=== PATIENT | female | born 1950 | race Caucasian/White ===

== ENCOUNTER 2016-07-08 18:00 | Inpatient (IN) | payer MEDICARE, OTHER ==
[~2016-07-08] VITALS: Ht 162.6 cm; Wt 68.3 kg
[~2016-07-08 18:00] MED LIST: ALBU0.63 NEB; ASPI-110 PO; CARV25TA PO; CITA10TA4 PO; CLON0.2D T-DERMAL; CYCL1TAB29 PO; DEXTROSE 50% IN WATER 50 ML VIAL(D50) IV PUSH PRN; GAMU20IN; GLUCAGON 1 MG/ML VIAL OTHER PRN; LEVE500 PO; LISI40TA PO; NEUR600T PO; RESP: ALBUTEROL 0.63 MG/3 ML NEB (PRN) NEB; SODIUM CHLORIDE 0.9% FLUSH 5 ML FLUSH IV FLUSH PRN; TYLETAB34 PO
[2016-07-08 18:22] VITALS: BP 136/76; PULSE 67; RESP 18; TEMP 96.5; O2SAT 93
--- NOTE | 2016-07-08 19:27 | HHI.HP ---
[facility]Staff Ad[facility] Diagnosis Diagnoses: Chief Complaint: Slurred speech, confusion Travel History International Travel<30 Days: No Contact w/Intl Traveler <30 Da: No Traveled to Known Affected Are: No History of Present Illness Ms. Matute is a pleasant 65 year old female with a history of seizure disorder , COPD, HTN who presented to the ED in [place], [place] due to confusion, slow with words that started around 9:30AM on 07/08/2016. She has underlying cervical disc issues that cause her to have left side weakness. However, today, she noticed her right side was weakness. Her right side both upper and lower ext feels weaker and developing a jerking movements. She was on Aspirin. However, she was advised to stop taking aspirin for skin bruises. She has not taken sinhala over 2 weeks. She denies any chest pain, shortness of breath, fever, chills. Denies any bladder or bowel habits changes. Review of Systems Except as stated in HPI: all other systems reviewed are Neg Past Family Social History Past Medical History Seizure activity COPD Hypertension Chronic neck pain Past Surgical History 4 neck surgeries last one being in December 2015 To Partial hysterectomy For surgery Reported Medications Gamunex-C Inj (Immune Globulin (Human) Inj) 20 Gm/200 Ml Inj 25 Gm Neurontin (Gabapentin) 600 Mg Tab 600 Mg PO DAILY Keppra (Levetiracetam) 500 Mg Tab 500 Mg PO BID Aspirin 81 (Aspirin) 81 Mg Tabdr 81 Mg PO DAILY Citalopram (Citalopram Hydrobromide) 10 Mg Tab 10 Mg PO DAILY Albuterol Neb (Albuterol Sulfate) 0.63 Mg/3 Ml Neb 0.63 Mg NEB TID NEB PRN Flexeril (Cyclobenzaprine HCl) 10 Mg Tab 10 Mg PO TID Tylenol-Codeine #3 (Acetaminophen-Codeine) 300-30 mg Tab 1 Tab PO Q6HR PRN Clonidine 168 HR Patch (Clonidine HCl) 0.2 Mg/24 Hr Patch 1 Patch T-DERMAL Q7D Lisinopril 40 Mg Tab 40 Mg PO DAILY Carvedilol 25 Mg Tab 25 Mg PO BID Allergies: Coded Allergies: Adhesives (Verified Allergy, Unknown, Rash, 07/08/16) Penicillin (Verified Allergy, Unknown, Hives, 07/08/16) Family History Mombreast cancer [facility] cancer Social History Denies using alcohol, tobacco, illicit drugs. Quit smoking 2 years ago. Physical Exam Vital Signs Vital Signs Date Time Temp Pulse Resp B/P Pulse Ox O2 Delivery O2 Flow Rate FiO2 07/08/16 18:22 96.5 67 18 136/76 93 Physical Exam GENERAL: This is a well-nourished, well-developed patient, in no apparent distress. SKIN: No rashes, ecchymoses or lesions. Warm and dry. HEAD: Atraumatic. Normocephalic. No temporal or scalp tenderness. EYES: Pupils equal round and reactive. No injection or drainage. ENT: Nose without bleeding, purulent drainage or septal hematoma. Airway patent. NECK: Trachea midline. No lymphadenopathy. Supple, nontender, no meningeal signs. CARDIOVASCULAR: Regular rate and rhythm without murmurs, gallops, or rubs. No JVD. RESPIRATORY: Clear to auscultation. Breath sounds equal bilaterally. No wheezes , rales, or rhonchi. GASTROINTESTINAL: Abdomen soft, non-tender, nondistended. No guarding. MUSCULOSKELETAL: Extremities without clubbing, cyanosis, or edema. NEUROLOGICAL: Awake and alert. CN II-XII grossly intact. Lower and upper ext weakness noted - 3/5. Speech is somewhat slow. No facial asymmetry. Laboratory Labs Laboratory Tests Test 07/08/16 07/08/16 12:34 12:58 White Blood Count 9.8 TH/MM3 Red Blood Count 3.29 MIL/MM3 Hemoglobin 10.2 GM/DL Hematocrit 33.0 % Mean Corpuscular Volume 100.3 FL Mean Corpuscular Hemoglobin 31.0 PG Mean Corpuscular Hemoglobin 30.9 % Concent Red Cell Distribution Width 14.6 % Platelet Count 341 TH/MM3 Mean Platelet Volume 9.4 FL Neutrophils (%) (Auto) 74.5 % Lymphocytes (%) (Auto) 15.9 % Monocytes (%) (Auto) 6.6 % Eosinophils (%) (Auto) 2.4 % Basophils (%) (Auto) 0.3 % Neutrophils # (Auto) 7.3 TH/MM3 Lymphocytes # (Auto) 1.6 TH/MM3 Monocytes # (Auto) 0.7 TH/MM3 Eosinophils # (Auto) 0.2 TH/MM3 Basophils # (Auto) 0.0 TH/MM3 CBC Comment DIFF FINAL Differential Comment Prothrombin Time 10.9 SEC Prothromb Time International 1.1 RATIO Ratio Activated Partial 21.2 SEC Thromboplast Time Sodium Level 140 MEQ/L Potassium Level 5.1 MEQ/L Chloride Level 110 MEQ/L Carbon Dioxide Level 21.0 MEQ/L Anion Gap 9 MEQ/L Blood Urea Nitrogen 63 MG/DL Creatinine 1.80 MG/DL Estimat Glomerular Filtration 28 ML/MIN Rate Random Glucose 97 MG/DL Calcium Level 9.3 MG/DL Total Bilirubin 0.2 MG/DL Aspartate Amino Transf 19 U/L (AST/SGOT) Alanine Aminotransferase 14 U/L (ALT/SGPT) Alkaline Phosphatase 120 U/L Total Creatine Kinase 82 U/L Troponin I LESS THAN 0.02 NG/ML Total Protein 8.2 GM/DL Albumin 2.8 GM/DL Urine Collection Type CATH Urine Color YELLOW Urine Turbidity CLEAR Urine pH 5.5 Urine Specific [place] 1.010 Urine Protein NEG mg/dL Urine Glucose (UA) NEG mg/dL Urine Ketones NEG mg/dL Urine Occult Blood NEG Urine Nitrite NEG Urine Bilirubin NEG Urine Leukocyte Esterase NEG Urine Squamous Epithelial 6-8 /hpf Cells Urine Amorphous Sediment SMALL Microscopic Urinalysis Comment CULT NOT INDICATED Urine Opiates Screen POS Urine Barbiturates Screen NEG Urine Amphetamines Screen NEG Urine Benzodiazepines Screen NEG Urine Cocaine Screen NEG Urine Cannabinoids Screen NEG Imaging Last [address] 07/08/16 1244 Signed Impressions: Service Date/Time: Friday, July 08, 2016 12:38 - CONCLUSION: 1. No acute intracranial hemorrhage. 2. Probable old periventricular white matter infarct adjacent to the anterior horn of the left lateral ventricle with extension into the external capsule. 3. Focal, faint area of diminished attenuation in the right cerebellar hemisphere again, possibly representing a subacute injury/infarct. 4. Faint diminished attenuation adjacent to the junction of the cedillo radiata and centrum semi-ovale on the left possibly representing a subacute injury/infarct. Brandon Delaney MD Chest X-Ray 07/08/16 1235 Signed Impressions: Service Date/Time: Friday, July 08, 2016 12:51 - CONCLUSION: Mild interstitial prominence which may be chronic. Probable prominent epicardial fat-pad. No confluent infiltrate or effusion. Brandon Delaney MD Assessment and Plan Problem List: (1) Acute ischemic stroke ICD Code: I63.9 Status: Acute (2) Seizure disorder ICD Code: G40.909 Status: Acute (3) COPD (chronic obstructive pulmonary disease) ICD Code: J44.9 Status: Acute (4) HTN (hypertension) ICD Code: I10 Status: Acute Assessment and Plan Ms. Matute is a pleasant 65 year old female with a history of seizure activity, COPD, HTN, chronic neck pain who presented to the ED with confusion, slow with words that started around 9:30AM. A stroke alert was called and subsequently patient was transferred to the [facility]. - Probable acute ischemic stroke - Neuro check. - Carotid US - Obtain MRI, MRA - Neurology consult. Consult PT, OT, ST. - Seizure disorder - continue Keppra - Obtain EEG. - COPD - Duoneb PRN Full code. Telemetry. SCDs. Physician Certification 2 Midnight Certification Type: Admission for Inpatient Services Order for Inpatient Services The services are ordered in accordance with Medicare regulations or non- Medicare payer requirements, as applicable. In the case of services not specified as inpatient-only, they are appropriately provided as inpatient services in accordance with the 2-midnight benchmark. Estimated LOS (days): 2 days is the estimated time the patient will need to remain in the hospital, assuming treatment plan goals are met and no additional complications. Post-Hospital Plan: Home Gonzalo Damian DO July 08, 2016 7:27 pm
[2016-07-08] MEDS ORDERED: RESP: ALBUTEROL 2.5 MG/IPRATROPIUM 0.5 MG NEB (PRN) NEB (19:45)
[2016-07-08 20:00] VITALS: BP 133/63; PULSE 67; RESP 20; TEMP 96.1; O2SAT 95
[2016-07-08] MEDS ORDERED: cloNIDine HCL 0.2 MG/24 HR PATCH T-DERMAL SCH (20:00)
[2016-07-08] MEDS: ATORVASTATIN 10 MG TAB PO SCH (20:44)
[2016-07-08] MEDS: CARVEDILOL 12.5 MG TAB PO SCH (20:44)
[2016-07-08] MEDS: levETIRAcetam 500 MG TAB PO SCH (20:44)
[2016-07-08] MEDS: INSULIN ASPART SUPPLEMENTAL SCALE SQ SCH (20:46)
[2016-07-08] MEDS: SODIUM CHLORIDE 0.9% FLUSH 5 ML FLUSH IV FLUSH SCH (20:47)
[2016-07-08] MEDS: ACETAMINOPHEN/CODEINE 300 MG/30 MG TAB PO PRN (20:58)
[2016-07-08 21:37] LABS: CREATINE KINASE 67 U/L (26-192)
--- NOTE | 2016-07-08 22:59 | RADRPT ---
EXAM DATE/TIME: 07/08/2016 21:51 [facility] COMPARISON: No previous studies available for comparison. INDICATIONS : CVA. MEDICAL HISTORY : Hypertension. Seizures. Chronic obstructive pulmonary disease. SURGICAL HISTORY : Fusion, cervical. section. Partial hysterectomy. Shoulder. ENCOUNTER: Subsequent ACUITY: 2 day PAIN SCORE: 3/10 LOCATION: cranial TECHNIQUE: Multiplanar, multisequence MRI of the brain was performed without contrast. FINDINGS: CEREBRUM: The ventricles are normal for age. No evidence of midline shift, mass lesion, hemorrhage or acute in farction. No extraaxial fluid collections are seen. The pituitary gland and suprasellar cistern are normal in configuration. WHITE MATTER: Moderate signal abnormalities are seen in the white matter. POSTERIOR FOSSA: The cerebellum and brainstem are intact. The 4th ventricle is midline. The cerebellopontine angle is unremarkable. The cerebellar tonsils are normal in position. DIFFUSION IMAGING: No focal areas of restricted diffusion are seen. No evidence of acute infarction. EXTRACRANIAL: The visualized portions of the orbits and paranasal sinuses are unremarkable. CONCLUSION: 1. No acute findings. No recent infarct. Moderate chronic ischemic changes in the periventricular whi te matter. Mayo Monte MD on July 08, 2016 at 22:54 Board Certified Radiologist. This report was verified electronically.
--- NOTE | 2016-07-08 23:02 | RADRPT ---
EXAM DATE/TIME: 07/08/2016 21:51 [facility] COMPARISON: No previous studies available for comparison. INDICATIONS : CVA. MEDICAL HISTORY : Hypertension. Seizures. Chronic obstructive pulmonary disease. SURGICAL HISTORY : Fusion, cervical. section. Partial hysterectomy. Shoulder. ENCOUNTER: Subsequent ACUITY: 2 day PAIN SCORE: 3/10 LOCATION: cranial Please note a normal MRA of the brain does not entirely exclude the possibility of a small aneurysm, nor the possibility of distal intracranial vessel disease. TECHNIQUE: 3D time of flight MRA was performed. Source images, multiplanar STS MIP, and 3D volume MIP reconstru ctions were reviewed. FINDINGS: There is excellent visualization of the major intracranial arteries out to the second-order branch ve ssels. There is no evidence for aneurysm, vessel truncation or stenosis, and no evidence for vascula r malformation. CONCLUSION: Normal examination for a patient of this age. Mayo Monte MD on July 08, 2016 at 22:58 Board Certified Radiologist. This report was verified electronically.
[2016-07-09] VITALS: BP_SYST 93; PULSE 71; RESP 18; TEMP 96.2
--- NOTE | 2016-07-09 01:09 | RADRPT ---
EXAM DATE/TIME: 07/09/2016 00:20 [facility] COMPARISON: No previous studies available for comparison. INDICATIONS : Cerebrovascular accident. MEDICAL HISTORY : Chronic obstructive pulmonary disease. Arthritis. Hypertension. Hearing loss. Cerebrovascular acciden t. Osteoporosis. Depression. Neuropathy. Blood transfusion. SURGICAL HISTORY : Hysterectomy. section. Neck surgery. Foot surgery. ENCOUNTER: Initial ACUITY: 1 day PAIN SCORE: 0/10 LOCATION: Bilateral neck PEAK SYSTOLIC VELOCITIES (cm/sec): ICA/CCA RATIO: Right: 1.7 Left: 1.0 ICA: Right: 87 Left: 63 CCA: Right: 51 Left: 63 ECA: Right: 63 Left: 72 VERTEBRAL: Right: 40 antegrade Left: 57 antegrade Elevated flow velocities and ICA/CCA ratios have been found to correlate with increased degrees of vessel stenosis, calculated as percentage of diameter relative to a normal segment of distal ICA/CCA FINDINGS: There are areas of mild visible plaque in the carotid arteries bilaterally especially around the bifu rcations. No evidence for hemodynamically significant stenosis. Vertebral artery flow is antegrade bi laterally. CONCLUSION: 1. Mild visible plaque in the carotid arteries bilaterally. No hemodynamically significant stenosis. Mayo Monte MD on July 09, 2016 at 1:05 Board Certified Radiologist. This report was verified electronically.
[2016-07-09 03:10] LABS: HDL CHOLESTEROL 32.9 MG/DL (40.0-60.0); LDL CHOLESTEROL 81 MG/DL (0-99)
[2016-07-09 03:18] LABS: CREATINE KINASE 54 U/L (26-192)
[2016-07-09 04:00] VITALS: BP 123/63; PULSE 76; RESP 18; TEMP 96.7; O2SAT 93
[2016-07-09] MEDS: INSULIN ASPART SUPPLEMENTAL SCALE SQ SCH ×4 (06:23→20:39)
[2016-07-09 08:05] VITALS: BP 135/70; PULSE 78; RESP 18; TEMP 96.9; O2SAT 94
[2016-07-09] MEDS: GABAPENTIN 300 MG CAP PO SCH (08:18)
[2016-07-09] MEDS: CITALOPRAM HYDROBROMIDE 20 MG TAB PO SCH (08:19)
[2016-07-09] MEDS: ASPIRIN 325 MG TAB PO SCH (08:19)
[2016-07-09] MEDS: CARVEDILOL 12.5 MG TAB PO SCH ×2 (08:19→20:39)
[2016-07-09] MEDS: levETIRAcetam 500 MG TAB PO SCH ×2 (08:19→20:39)
[2016-07-09] MEDS: SODIUM CHLORIDE 0.9% FLUSH 5 ML FLUSH IV FLUSH SCH ×2 (08:21→20:58)
[2016-07-09] MEDS: ACETAMINOPHEN/CODEINE 300 MG/30 MG TAB PO PRN ×2 (08:23→20:41)
[2016-07-09 12:04] VITALS: BP 114/62; PULSE 72; RESP 18; TEMP 96.5; O2SAT 93
--- NOTE | 2016-07-09 13:39 | HHI.PR ---
Subjective Remarks Follow-up for TIA. Patient is currently doing well. Family is at bedside. She lives with her sister and [id number]. Sister states that patient appears to be at her baseline. No acute concerns. Objective Vitals Vital Signs Date Time Temp Pulse Resp B/P Pulse Ox O2 Delivery O2 Flow Rate FiO2 07/09/16 12:04 96.5 72 18 114/62 93 07/09/16 09:23 18 07/09/16 08:05 96.9 78 18 135/70 94 07/09/16 04:00 96.7 76 18 123/63 93 07/09/16 00:00 96.2 71 18 93/ 07/08/16 20:00 96.1 67 20 133/63 95 07/08/16 18:22 96.5 67 18 136/76 93 Imaging Last Impressions Head Magnetic Resonance Angiography 07/08/16 0000 Signed Impressions: Service Date/Time: Friday, July 08, 2016 21:51 - CONCLUSION: Normal examination for a patient of this age. Mayo Monte MD Carotid Artery Ultrasound 07/08/16 0000 Signed Impressions: Service Date/Time: Saturday, July 09, 2016 00:20 - CONCLUSION: 1. Mild visible plaque in the carotid arteries bilaterally. No hemodynamically significant stenosis. Mayo Monte MD Brain MRI 07/08/16 0000 Signed Impressions: Service Date/Time: Friday, July 08, 2016 21:51 - CONCLUSION: 1. No acute findings. No recent infarct. Moderate chronic ischemic changes in the periventricular white matter. Mayo Monte MD Objective Remarks GENERAL: Alert, oriented 3, NAD. SKIN: Warm and dry. HEAD: Normocephalic. EYES: No scleral icterus. No injection or drainage. NECK: Supple, trachea midline. No JVD or lymphadenopathy. CARDIOVASCULAR: Regular rate and rhythm without murmurs, gallops, or rubs. RESPIRATORY: Breath sounds equal bilaterally. No accessory muscle use. GASTROINTESTINAL: Abdomen soft, non-tender, nondistended. MUSCULOSKELETAL: No cyanosis, or edema. BACK: Nontender without obvious deformity. No CVA tenderness. Procedures 07/09/2016 INTERPRETATION This EEG shows some mild to moderate slowing bilaterally, intermittently suggesting a diffuse disturbance of cerebral function. No epileptiform features present. A/P Problem List: (1) Acute ischemic stroke ICD Code: I63.9 Status: Acute (2) Seizure disorder ICD Code: G40.909 Status: Acute (3) COPD (chronic obstructive pulmonary disease) ICD Code: J44.9 Status: Acute (4) HTN (hypertension) ICD Code: I10 Status: Acute Assessment and Plan Ms. Matute is a pleasant 65 year old female with a history of seizure activity, COPD, HTN, chronic neck pain who presented to the ED with confusion, slow with words that started around 9:30AM. A stroke alert was called and subsequently patient was transferred to the [facility]. - Transient ischemic Attack - Neuro check. - Carotid US negative. - MRI, MRA negative for any acute findings. - Neurology consult pending. Consult PT, OT, ST. - Since patient was not on aspirin in the last two weeks, we can likely continue Aspirin 81mg OR consider Plavix 75mg Qday - Will wait for Neurology input regarding Aspirin vs. Plavix. - Seizure disorder - continue Keppra - EEG showed no seizure activities. - COPD - Duoneb PRN Full code. Telemetry. SCDs. Discharge - pending Neurology evaluation and recommendations. Gonzalo Damian DO July 09, 2016 13:39
[2016-07-09 14:37] LABS: HEMOGLOBIN A1a 1.8 %; HEMOGLOBIN A1b 0.9 %; HEMOGLOBIN Ao 84.8 %; HEMOGLOBIN LA1C 1.9 %; HEMOGLOBIN P3 5.2 %
--- NOTE | 2016-07-09 15:40 | MG ---
cc: CUCO PENNINGTON M.D., SHAHABUDDIN DO Lab No: Date: 07/09/16 Age: 65 Sex: F Race: REQUESTING PHYSICIAN Dr. Damian HISTORY An EEG was obtained on this 65-year-old being evaluated for confusion. MEDICATIONS 1. Coreg. 2. Celexa. 3. Neurontin. 4. Keppra. 5. Lipitor. DESCRIPTION The patient is described as awake and asleep. The EEG shows a lot of asleep features. There are a mixture of rhythms including some delta activity bilaterally. There are some theta and some alpha rhythms. There is also low amplitude beta activity. Overall the rhythms are symmetrical. Eye opening and closure discloses some bilateral change in the background. Photic stimulation showed no significant change, possible driving response is noted. Hyperventilation was not performed. INTERPRETATION This EEG shows some mild to moderate slowing bilaterally, intermittently suggesting a diffuse disturbance of cerebral function. No epileptiform features present. MD LUCRECIA Kaufman/THALIA /3:14 PM /3:22 PM
[2016-07-09 16:17] VITALS: BP 102/58; PULSE 73; RESP 18; TEMP 96.6; O2SAT 94
[2016-07-09 20:00] VITALS: BP 161/75; PULSE 89; RESP 18; TEMP 99.3; O2SAT 90
[2016-07-09] MEDS: ATORVASTATIN 10 MG TAB PO SCH (20:39)
[2016-07-10] VITALS: BP 155/78; PULSE 89; RESP 18; TEMP 97.6; O2SAT 93
[2016-07-10 04:00] VITALS: BP 147/81; PULSE 77; RESP 18; TEMP 98; O2SAT 94
[2016-07-10] MEDS: INSULIN ASPART SUPPLEMENTAL SCALE SQ SCH (06:00)
--- NOTE | 2016-07-10 06:36 | MB ---
cc: DONA BEAULIEU MD DATE OF : 48 DATE OF CONSULTATION: 07/09/2016 REASON FOR CONSULTATION: Stroke alert HISTORY OF PRESENT ILLNESS Ms. Matute is a 65-year-old female with a past medical history of chronic neck pain status post cervical myelopathy, laminectomies, with residual left lower extremity weakness and "foot drop" a few years ago with diagnosis of chronic inflammatory demyelinating polyneuropathy (CIDP). She follows up with an outside neurologist and she receives IVIG periodically, through a port located on the right upper chest. She also has noticed that her right foot has become weaker with a recent right foot drop over the last few days. She denies any recent injury to the neck or back, or sphincter control disturbances. The patient presented to [place] emergency room as a stroke alert for slurred speech, questionable confusion, and walking difficulty. I talked to the ED physician at [place] and she was outside the window for more than three hours, still within the window. She had neurologic abnormality with slurred speech. NIH stroke scale was 1. Hence, I recommended to transport the patient to [facility] emergency room for further workup. Her head CT scan at the [place] ER was unremarkable. REVIEW OF SYSTEMS A 12-point review of systems is negative except for what is stated in the HPI. PAST MEDICAL HISTORY 1. Cervical myelopathy status post laminectomy. 2. CIDP. 3. Hypertension. 4. Chronic neck and back pain. 5. Seizure. PAST SURGICAL HISTORY: 1. Multiple neck surgeries. 2. section. 3. Partial hysterectomy. MEDICATIONS: 1. Neurontin. 2. Keppra. 3. Aspirin 81. 4. Citalopram. 5. Albuterol. 6. Flexeril 7. Tylenol with Codeine #3. 8. Clonidine. 9. Lisinopril 10. Carvedilol ALLERGIES ADHESIVES PENICILLIN FAMILY HISTORY Mother with breast cancer. Father with lung cancer. SOCIAL HISTORY Quit smoking 2 years ago. Lives with her sister, denies alcohol, illicit drugs or smoking. PHYSICAL EXAMINATION General: Awake, alert, good historian, not in acute distress HEENT: Atraumatic, normocephalic. Intact hearing and intact vision. Neck: Trachea in midline. No carotid bruit. Cardiovascular: Regular rate and rhythm. Respiratory: Clear to auscultation. No wheezes. Port on the right upper side of the chest. Gastrointestinal: Soft abdomen, nontender. Musculoskeletal: Extremities, without cyanosis or clubbing. Left lower extremity, monoplegic, right foot drop. Neurological: Awake, alert, oriented to time, person and place. Subtle slurring of speech. The patient states she is back to her baseline. Cranial nerves II-XII are grossly intact. Upper extremities 5/5 bilateral symmetrical with give-way due to pain, wasting of the small muscles of the hands, mild spasticity of bilateral upper extremities. No abnormal movement. Lower extremities: grade 0/5 left lower extremity with foot drop, right lower extremity grade 5 minus hip flexion, knee extension right foot drop, reflexes bilateral upper extremities, 1+ with finger flexion, lower extremities bilateral 2+, positive abductor reflex. Plantars bilaterally downgoing. Sensation is intact throughout. Psychological: No delusions. Intact mood and behavior. LABORATORY DATA White blood cell count 14, hemoglobin 10.2, MCV 100.3, normal electrolytes. Sodium 140, potassium 5.1, chloride 110, anion gap 9, BUN 63, creatinine 1.8, LFTs normal. UDS positive for opiates. DIAGNOSTICS IMAGING - Head CT scan, no acute intracranial abnormality probable old periventricular white matter infarct adjacent to the anterior horn, left lateral ventricle with extension into the external capsule. Focal, faint area of diminished attenuation in the right cerebellar hemisphere possibly representing a subacute Injury. Faint diminished attenuation adjacent to the junction of the cedillo radiata and centrum semi-ovale on the left possibly representing a subacute injury. - Brain MRI revealed no acute findings. No recent infarct, moderate chronic ischemic changes in the periventricular white matter. - Carotid ultrasound revealed mild visible plaque in the carotid artery bilaterally. No significant hemodynamic stenosis. - Head MRA revealed normal examination. DIAGNOSTIC IMPRESSION 1. History of CIDP (chronic inflammatory demyelinating polyneuropathy). 2. Bilateral foot drop, status post CIDP. 3. History of cervical myelopathy, status post multiple cervical surgeries. 4. Encephalopathy with slurred speech, resolved. PLAN - There is no evidence of an acute intracranial abnormality, TIA or stroke. -A possible etiology is medication overdose, dehydration or electrolyte abnormalities. - Continue aspirin 81 milligrams daily. - Continue home medications, antiseizure medication, Keppra 500 milligrams. - Consult PT/OT. Recommendations are appreciated. - Follow up with outpatient neurologist for possible IVIG treatment. - DVT prophylaxis. - Fall precautions. Thank you for the opportunity to participate in the care of this patient. Please call for questions. MD SHELLY Maher/BRANDON /11:51 PM /6:05 AM SONIA
[2016-07-10 08:03] VITALS: BP 148/97; PULSE 77; RESP 18; TEMP 97.4; O2SAT 95
[2016-07-10] MEDS: GABAPENTIN 300 MG CAP PO SCH (08:44)
[2016-07-10] MEDS: CITALOPRAM HYDROBROMIDE 20 MG TAB PO SCH (08:44)
[2016-07-10] MEDS: CARVEDILOL 12.5 MG TAB PO SCH (08:45)
[2016-07-10] MEDS: SODIUM CHLORIDE 0.9% FLUSH 5 ML FLUSH IV FLUSH SCH (08:45)
[2016-07-10] MEDS: levETIRAcetam 500 MG TAB PO SCH (08:45)
[2016-07-10] MEDS: ASPIRIN 325 MG TAB PO SCH (08:45)
[2016-07-10] MEDS: ACETAMINOPHEN/CODEINE 300 MG/30 MG TAB PO PRN (08:46)
[2016-07-10] MEDS ORDERED: LIPI10TA PO (09:16)
--- NOTE | 2016-07-10 09:22 | HHI.PR ---
Subjective Remarks Follow up for TIA. Patient is doing well. No acute concerns. Neurology saw patient. No further work up. Objective Vitals Vital Signs Date Time Temp Pulse Resp B/P Pulse Ox O2 Delivery O2 Flow Rate FiO2 07/10/16 08:03 97.4 77 18 148/97 95 07/10/16 04:00 98.0 77 18 147/81 94 07/10/16 00:00 97.6 89 18 155/78 93 07/09/16 20:00 99.3 89 18 161/75 90 07/09/16 16:17 96.6 73 18 102/58 94 07/09/16 12:04 96.5 72 18 114/62 93 07/09/16 09:23 18 I/O 07/09/16 07/09/16 07/09/16 07/10/16 07/10/16 07/10/16 07:00 15:00 23:00 07:00 15:00 23:00 Intake Total 240 ml 240 ml Balance 240 ml 240 ml Intake Oral 240 ml 240 ml # Voids 3 5 4 Imaging Last Impressions Head Magnetic Resonance Angiography 07/08/16 0000 Signed Impressions: Service Date/Time: Friday, July 08, 2016 21:51 - CONCLUSION: Normal examination for a patient of this age. Mayo Monte MD Carotid Artery Ultrasound 07/08/16 0000 Signed Impressions: Service Date/Time: Saturday, July 09, 2016 00:20 - CONCLUSION: 1. Mild visible plaque in the carotid arteries bilaterally. No hemodynamically significant stenosis. Mayo Monte MD Brain MRI 07/08/16 0000 Signed Impressions: Service Date/Time: Friday, July 08, 2016 21:51 - CONCLUSION: 1. No acute findings. No recent infarct. Moderate chronic ischemic changes in the periventricular white matter. Mayo Monte MD Objective Remarks GENERAL: Alert, oriented 3, NAD. SKIN: Warm and dry. HEAD: Normocephalic. EYES: No scleral icterus. No injection or drainage. NECK: Supple, trachea midline. No JVD or lymphadenopathy. CARDIOVASCULAR: Regular rate and rhythm without murmurs, gallops, or rubs. RESPIRATORY: Breath sounds equal bilaterally. No accessory muscle use. GASTROINTESTINAL: Abdomen soft, non-tender, nondistended. MUSCULOSKELETAL: No cyanosis, or edema. BACK: Nontender without obvious deformity. No CVA tenderness. Procedures 07/09/2016 INTERPRETATION This EEG shows some mild to moderate slowing bilaterally, intermittently suggesting a diffuse disturbance of cerebral function. No epileptiform features present. A/P Problem List: (1) Acute ischemic stroke ICD Code: I63.9 Status: Acute (2) Seizure disorder ICD Code: G40.909 Status: Acute (3) COPD (chronic obstructive pulmonary disease) ICD Code: J44.9 Status: Acute (4) HTN (hypertension) ICD Code: I10 Status: Acute Assessment and Plan Ms. Matute is a pleasant 65 year old female with a history of seizure activity, COPD, HTN, chronic neck pain who presented to the ED with confusion, slow with words that started around 9:30AM. A stroke alert was called and subsequently patient was transferred to the [facility]. - Transient ischemic Attack - Carotid US negative. - MRI, MRA negative for any acute findings. - Neurology consulted - recommended to continue Aspirin 81mg Qday. - Seizure disorder - continue Keppra - EEG showed no seizure activities. - COPD - Duoneb PRN Full code. Telemetry. SCDs. Discharge patient to home Condition on discharge: Improved Heart healthy Diet as tolerated Ad Riz[place]ana activity Rx written: - Atorvastatin 10mg Qday. Follow-up with primary care physician within one week and Neurology within two weeks. Gonzalo Damian DO July 10, 2016 9:22 am
[2016-07-10 10:05] VITALS: RESP 18
[2016-07-14] MEDS ORDERED: cloNIDine HCL 0.2 MG/24 HR PATCH T-DERMAL SCH (09:00)
[2016-07-21] MEDS ORDERED: REMOVE OLD CATAPRES (CLONIDINE) PATCH T-DERMAL SCH (09:00)
== END 2016-07-10 11:07 | disposition home or self-care (01) | DRG 64 ==
LOC: NEDDLT 18:00 → N05A 18:23
PROVIDERS: ADMIT Hospitalist; ATTEND Hospitalist
DX: I63.9 Cerebral infarction, unspecified (principal); G93.40 Encephalopathy, unspecified; G61.81 Chronic inflammatory demyelinating polyneuritis; J44.9 Chronic obstructive pulmonary disease, unspecified; I10 Essential (primary) hypertension; G40.909 Epilepsy, unspecified, not intractable, without status epilepticus; M21.371 Foot drop, right foot; M21.372 Foot drop, left foot; Z79.82 Long term (current) use of aspirin; Z87.891 Personal history of nicotine dependence
CPT/HCPCS: 70450; 70544; 70551; 71010; 80053; 80061; 80307; 81001; 82550; 82948; 83036; 84484; 85025; 85610; 85730; 93005; 93880; 95819; 96360; 96361; 99281; J7030; P9612